=== PATIENT | female | born 1940 | race Caucasian/White ===

== ENCOUNTER 2019-11-21 08:13 | Outpatient (CLI) | payer MEDICARE, SELFPAY ==
--- NOTE | ~2019-11-21 | MM_ITS ---
EXAMINATION: MM screening casi BI w sol HISTORY: Screening mammogram TECHNIQUE: Craniocaudal and mediolateral oblique 3-D tomosynthesis images were obtained and synthetic 2-D images were generated. CAD analysis was submitted and interpreted. COMPARISON: 11/25/2018, 11/04/2017, 11/02/2016 bilateral digital screening mammogram examinations BREAST PARENCHYMAL COMPOSITION: The breasts are heterogeneously dense, which may obscure small masses . FINDINGS: Again noted is volume loss, scarring, retraction of left breast related to partial mastecto my for history of left breast malignancy. There are scattered bilateral benign calcifications, includ ing some calcifications of fat necrosis at the postoperative site on the left. There is no evidence o f interval suspicious mass, calcification, or architectural distortion to suggest malignancy in eithe r breast. There has been no suspicious interval change. IMPRESSION: 1. No mammographic evidence of malignancy. 2. Recommend routine screening mammography in one year. BI-RADS Category 2: Benign finding(s). Reviewed, dictated and finalized at location A.
== END 2019-11-21 08:14 | disposition home or self-care (01) ==
LOC: ANHIMG 08:19
PROVIDERS: PCP Family Medicine Adolescent Medicine; Visit Provider Family Medicine Adolescent Medicine
DX: Z12.31 Encounter for screening mammogram for malignant neoplasm of breast (principal)
CPT/HCPCS: 77063; 77067

== ENCOUNTER 2020-11-25 08:57 | Outpatient (CLI) | payer MEDICARE, SELFPAY ==
--- NOTE | ~2020-11-25 | MM_ITS ---
EXAMINATION: MM screening casi BI w sol HISTORY: Screening TECHNIQUE: Craniocaudal and mediolateral oblique 3-D tomosynthesis images were obtained and synthetic 2-D images were generated. CAD analysis was submitted and interpreted. COMPARISON: Comparison to multiple prior studies sequentially, with oldest reviewed study dated . . BREAST PARENCHYMAL COMPOSITION: There are scattered areas of fibroglandular density. FINDINGS: Stable architectural distortion in the left breast, consistent with previous lumpectomy. Th ere is no evidence of suspicious mass, calcification, or architectural distortion to suggest malignan cy in either breast. There has been no suspicious interval change. IMPRESSION: 1. No mammographic evidence of malignancy. 2. Recommend routine screening mammography in one year. BI-RADS Category 1: Negative Reviewed, dictated and finalized at location A.
== END 2020-11-25 08:58 | disposition home or self-care (01) ==
PROVIDERS: PCP Family Medicine Adolescent Medicine; Visit Provider Family Medicine Adolescent Medicine
DX: Z12.31 Encounter for screening mammogram for malignant neoplasm of breast (principal)
CPT/HCPCS: 77063; 77067

== ENCOUNTER 2021-03-28 08:17 | Emergency (ER) | payer MEDICARE, SELFPAY ==
[2021-03-28 08:30] VITALS: BP 185/83; PULSE 72; RESP 16; TEMP 36.3; O2SAT 98
[2021-03-28 08:42] VITALS: BP 185/83; PULSE 72; RESP 16; TEMP 36.3; O2SAT 98
--- NOTE | 2021-03-28 08:45 | ED.SKABFB ---
HPI - Skin/Abscess/Foreign Bdy General Chief complaint: Allergic Reaction Stated complaint: Swollen lips Time Seen by Provider: 03/28/21 08:30 Source: patient Mode of arrival: ambulatory Limitations: no limitations History of Present Illness HPI narrative: radha Westbrook comes to express care swollen lips of unknown etiology. She has a PMH of hypertension high cholesterol prediabetes and GERD. She states that she has been taking her lisinopril for almost 10 years, and in discussion said that she had some shrimp with pineapple and other sauce on Tuesday and lip swelling began yesterday. She ate 6 of them for lunch and then 3 for dinner and so she had multiple exposures to the strep her lip is not tremendously more swollen today than it was last night but it also has gone down. She has had no problems breathing no difficulty talking no difficulty swallowing no nausea vomiting Related Data Home Medications Medication Instructions Recorded Confirmed amlodipine 5 mg PO DAILY 06/29/19 03/28/21 lisinopril 40 mg PO DAILY 06/29/19 03/28/21 lovastatin 40 mg PO DAILY 06/29/19 03/28/21 metformin 500 mg PO DAILY 06/29/19 03/28/21 metoprolol succinate 50 mg PO DAILY 06/29/19 03/28/21 timolol maleate 2 drp OPHTHALMIC (EYE) DAILY 06/29/19 03/28/21 Allergies Allergy/AdvReac Type Severity Reaction Status Date / Time azithromycin Allergy Unknown STOMACHE Verified 03/28/21 08:29 UPSET Review of Systems Review of Systems: CONSTITUTIONAL: Denies fever, chills, sweats. EYES: Denies visual changes, redness, discharge. ENT: Denies rhinorrhea, congestion, sore throat, otalgia. CARDIOVASCULAR: Denies chest pain, palpitations, edema. RESPIRATORY: Denies dyspnea, wheezing, cough GASTROINTESTINAL: Denies abdominal pain, nausea, vomiting, diarrhea. GENITOURINARY: Denies dysuria, hematuria, abnormal discharge SKIN: Denies rash or itching. Lower lip swelling NEUROLOGIC: Denies numbness, or focal weakness. PSYCHIATRIC: Denies anxiety or depression. [facility] Past Medical History Medical History High cholesterol HTN (hypertension) Prediabetes Social History Social History (Reviewed 09/18/21 @ 08:47 by LORY Oneil Smoking status: Never smoker Alcohol intake: current Comments At time of signature, I agree with nursing past medical, surgical, social and family history. There is no relevant family history pertinent to the presenting complaint. Exam Narrative: GENERAL: This is a well-nourished, well-developed patient, in mild distress. HEAD: normocephalic, atraumatic. EYES: . Sclera clear/white. Vision is grossly intact. EARS: External ears normal, . Hearing grossly intact. NOSE: External nose normal without nasal discharge, nares without redness, no rhinorrhea. THROAT: Mucous membranes moist, posterior pharynx clear, lower lip swollen able to open mouth no difficulty breathing no wheezing NECK: Neck supple, non-tender CARDIOVASCULAR: Regular rate and rhythm without murmurs, gallops, or rubs. RESPIRATORY: Clear to auscultation. Breath sounds equal bilaterally. No wheezes, rales, or rhonchi. GASTROINTESTINAL: Abdomen soft, SKIN: warm, intact with no suspicious lesions or rash, good texture and turgor. NEURO: awake, alert, and oriented to person, place and time. There were no obvious focal neurologic abnormalities. Steady gait EXTREMITIES: Normal range of motion. BACK: Nontender without deformity Course Course Emergency Course: Patient has lip swelling that started yesterday morning Given prednisone 60 mg here and started on Medrol Dosepak, Benadryl, Pepcid Vital Signs Vital signs: Vital Signs Temperature 97.3 F L 03/28/21 08:30 Pulse Rate 72 03/28/21 08:30 Respiratory Rate 16 03/28/21 08:30 Blood Pressure 185/83 H 03/28/21 08:30 Pulse Oximetry 98 03/28/21 08:30 Temperature 97.3 F L 03/28/21 08:42 Pulse Rate 72 03/28/21 08:42 Respiratory
[2021-03-28] MEDS: predniSONE 20 MG TABLET 60 MG PO (08:51)
== END 2021-03-28 09:00 | disposition home or self-care (01) ==
PROVIDERS: Emergency Provider Nurse Practitioner; PCP Family Medicine Adolescent Medicine
DX: T78.1XXA Other adverse food reactions, not elsewhere classified, initial encounter (principal); R22.0 Localized swelling, mass and lump, head; I10 Essential (primary) hypertension
CPT/HCPCS: 99213; G0463; J7512

== ENCOUNTER 2021-12-23 07:47 | Outpatient (CLI) | payer MEDICARE, SELFPAY ==
--- NOTE | ~2021-12-23 | MM_ITS ---
EXAMINATION: MM screening casi BI w sol HISTORY: Screening TECHNIQUE: Craniocaudal and mediolateral oblique 3-D tomosynthesis images were obtained and synthetic 2-D images were generated. CAD analysis was submitted and interpreted. COMPARISON: Comparison to multiple prior studies sequentially, with oldest reviewed study dated 11/02. BREAST PARENCHYMAL COMPOSITION: Breast composed of scattered areas of fibroglandular density FINDINGS: There is no evidence of suspicious mass, calcification, or architectural distortion to sugg est malignancy in either breast. There has been no suspicious interval change. IMPRESSION: 1. No mammographic evidence of malignancy. 2. Recommend routine screening mammography in one year. BI-RADS Category 1: Negative Reviewed, dictated and finalized at location A.
== END 2021-12-23 07:48 | disposition home or self-care (01) ==
LOC: ANHIMG 07:49
PROVIDERS: PCP Family Medicine Adolescent Medicine; Visit Provider Family Medicine Adolescent Medicine
DX: Z12.31 Encounter for screening mammogram for malignant neoplasm of breast (principal)
CPT/HCPCS: 77063; 77067

== ENCOUNTER 2023-10-22 14:03 | Emergency (ER) | payer MEDICARE, SELFPAY ==
--- NOTE | ~2023-10-22 | XR_ITS ---
EXAMINATION: XR foot LT min 3V DATE: 10/22/2023 14:34 INDICATION: Left foot injury. TECHNIQUE: 4 views of left foot were obtained. COMPARISON: None. FINDINGS: There is moderate hallux valgus. There is heterotopic ossification dorsal to the head of th e talus. There is a chip of bone dorsolateral to the midfoot. There is mild osteoarthritis of first m etatarsophalangeal joint and some of the interphalangeal joints. There are enthesophytes at the poste rior and plantar aspects of calcaneal tuberosity. IMPRESSION: 1. 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 2. Chip of bone dorsolateral to the midfoot, which may be an acute avulsion fracture or a chronic fin ding. 3. Moderate hallux valgus. 4. Mild polyarticular osteoarthritis. Reviewed, dictated and finalized at location E. IMPRESSION: 1. 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 2. Chip of bone dorsolateral to the midfoot, which may be an acute avulsion fra cture or a chronic finding. 3. Moderate hallux valgus. 4. Mild polyarticular osteoarthritis.
--- NOTE | ~2023-10-22 | XR_ITS ---
EXAMINATION: XR ankle LT min 3V DATE: 10/22/2023 14:34 INDICATION: Left ankle injury. TECHNIQUE: 4 views of left ankle were obtained. COMPARISON: None. FINDINGS: There is heterotopic ossification dorsal to the head of the talus. Joint spaces are normal. There are enthesophytes at the posterior and plantar aspects of calcaneal tuberosity. Ankle soft tis chevy swelling is noted. IMPRESSION: 1. Heterotopic ossification dorsal to the head of the talus, which may be an acute avulsion fracture or a chronic finding. Correlate for point tenderness. Reviewed, dictated and finalized at location E. IMPRESSION: 1. Heterotopic ossification dorsal to the head of the talus, which may be an ac melanie avulsion fracture or a chronic finding. Correlate for point tenderness.
[2023-10-22 14:20] VITALS: BP 148/92; PULSE 70; RESP 14; TEMP 36.9; O2SAT 100
--- NOTE | 2023-10-22 14:24 | ED.LOWEXIN ---
HPI - Extremity Injury (Lower) General Chief Complaint: Extremity Injury, Lower Stated Complaint: FALL Time Seen by Provider: 10/22/23 14:24 Source: patient, RN notes reviewed and old records reviewed Mode of arrival: ambulatory Limitations: no limitations History of Present Illness HPI Narrative: 83 year old female who presents to [facility] care with complaints of injury to her left foot and ankle which occurred yesterday. Patient reports that she was mowing on her lawn tractor on a hill and it started to slide and tip so she jumped off injuring her left foot and ankle. Patient has bruising and swelling noted to her left lateral ankle and dorsal foot. MD complaint: ankle injury (left) and foot injury (left) Onset (ago): day(s) (yesterday) Injury: Left: ankle and foot Place: home and street/outdoors Severity: mild Treatments prior to arrival: other (tylenol) Related Data Home Medications Medication Instructions Recorded Confirmed timolol maleate 0.5 % eye drops 2 drp ophthalmic (eye) DAILY 06/29/19 11/10/22 calcium carbonate (Calcium 600) 600 mg PO DAILY 11/10/21 11/10/22 calcium polycarbophil 625 mg 625 mg PO DAILY PRN 11/10/21 11/10/22 tablet (Fiber Laxative (calcium polycarbophil)) glucosamine 750 mf-bgaofg-qqf 2-C 2 tablet PO QAM 11/10/21 11/10/22 30 mg-D3 1,000 unit-pierre 1 mg tablet (Jifqwxvgldc-Gsctaiwvytn-MWK + vitD) ykoastpr-swy-cdqvw ac 400 1 tablet PO .QD 11/10/21 11/10/22 mcg-calcium carb 500 mg-vit K1 20 mcg tablet (Women's 50 Plus Multivitamin) Allergies Allergy/AdvReac Type Severity Reaction Status Date / Time azithromycin Allergy Unknown STOMACHE Verified 10/22/23 14:11 UPSET nitrofurantoin AdvReac Intermediate Nausea Verified 10/22/23 14:11 [From Macrobid] Review of Systems Review of Systems: CONSTITUTIONAL: Denies fever, chills, or sweats. EYES: Denies visual changes, redness, or discharge. ENT: Denies rhinorrhea, congestion, sore throat, or otalgia. CARDIOVASCULAR: Denies chest pain, palpitations, or edema. RESPIRATORY: Denies cough or dyspnea. GASTROINTESTINAL: Denies abdominal pain, nausea, vomiting, or diarrhea. GENITOURINARY: Denies dysuria or hematuria. SKIN: Denies rash or itching. MUSCULOSKELETAL: Denies back pain,reports pain to left lateral ankle and along anterior ankle and dorsal left foot, or myalgia. NEUROLOGIC: Denies headache, numbness, or weakness. PSYCHIATRIC: Denies anxiety or depression. All systems reviewed & are unremarkable except as noted in HPI and below PMFSH Past Medical History Medical History CVA (cerebral vascular accident) 2007 High cholesterol History of breast cancer 2011 HTN (hypertension) Prediabetes Primary open-angle glaucoma, bilateral, moderate stage Surgical History Surgical History History of section x2 History of lumpectomy of left breast 2012 History of tonsillectomy Family History Family History Mother Diabetes mellitus Breast cancer Father Heart disease Sibling Alzheimer disease Heart disease Cerebrovascular accident Social History Social History Smoking status: Never smoker Second hand tobacco smoke exposure: No Alcohol intake: current Drinks per week: 3 Substance use: never Substance use type: does not use Living arrangements: with family Occupation/Education: retired Gender identity (if verbalized by the patient): Female Sexual Orientation (if Verbalized by the Patient): Straight or Heterosexual Spiritual care concerns: No Agree to blood products: Yes Comments At time of signature, agree with nursing past medical, surgical, social and family history. There is no relevant family history pertinent to the presenting complaint Ex
== END 2023-10-22 15:25 | disposition home or self-care (01) ==
PROVIDERS: Emergency Provider Registered Nurse; PCP Family Medicine Adolescent Medicine
DX: S99.922A Unspecified injury of left foot, initial encounter (principal); X58.XXXA Exposure to other specified factors, initial encounter; S99.912A Unspecified injury of left ankle, initial encounter; E78.00 Pure hypercholesterolemia, unspecified; I10 Essential (primary) hypertension; R73.03 Prediabetes; H40.1132 Primary open-angle glaucoma, bilateral, moderate stage; Z86.73 Personal history of transient ischemic attack (TIA), and cerebral infarction without residual deficits
CPT/HCPCS: 73610; 73630; 99213; G0463